=== PATIENT | female | born 1970 | race African-American/Black ===

== ENCOUNTER 2017-04-30 07:10 | Emergency (ER) | payer OTHER ==
[2017-04-30 07:16] VITALS: TEMP 97.9; BMI 27.6
--- NOTE | 2017-04-30 07:34 | PDOC ---
History of Present Illness - General Chief Complaint: Pain Stated Complaint: DIARRHEA Time Seen by Provider: 04/30/17 07:28 History Source: Patient Exam Limitations: No Limitations - History of Present Illness Initial Comments: 04/30/17 07:34 CHIEF COMPLAINT: Diarrhea HISTORY OF PRESENT ILLNESS: This is a 47-year-old female with a history of asthma (no hospitalizations) and cholecystectomy who presents complaining of diarrhea for 3 days. Patient returned from a vacation to [place] on Thursday night. On Thursday in the [employer], she started having watery diarrhea and reports that she has continued having it about every half hour since then. She has diffuse lower abdominal cramping which seems to be worse in the left lower quadrant. She denies nausea/vomiting, fevers/chills, or any other symptoms. She has seen some streaks of blood in her mostly clear/watery diarrhea. Vital signs on arrival are notable for P 92. PCP is Dr. Tomas ([place]). REVIEW OF SYSTEMS: GENERAL/CONSTITUTIONAL: No fever or chills. No weakness. No weight change. HEAD, EYES, EARS, NOSE AND THROAT: No change in vision. No ear pain or discharge. No sore throat. CARDIOVASCULAR: No chest pain or palpitations. RESPIRATORY: No cough, wheezing, or shortness of breath. GASTROINTESTINAL: See HPI. GENITOURINARY: No dysuria, frequency, or change in urination. MUSCULOSKELETAL: No joint or muscle swelling or pain. No neck or back pain. SKIN: No rash or easy bruising. NEUROLOGIC: No headache, vertigo, loss of consciousness, or loss of sensation. PSYCHIATRIC: No depression or anxiety. ENDOCRINE: No increased thirst. No abnormal weight change. HEMATOLOGIC/LYMPHATIC: No anemia, easy bleeding, or history of blood clots. ALLERGIC/IMMUNOLOGIC: No hives or skin allergy. No latex allergy. PHYSICAL EXAM: GENERAL: The patient is awake, alert, and fully oriented, in some distress secondary to pain. HEAD: Normal with no signs of trauma. ENT: Pupils equal, round and reactive to light, extraocular movements intact, sclera anicteric, conjunctiva clear. Neck supple. LUNGS: Clear to auscultation bilaterally. Normal excursion. No respiratory distress or use of accessory muscles. CV: RRR, S1/S2, no MRG. Cap refill < 2 sec. ABDOMEN: Soft, non-distended, tender to gentle palpation in LLQ > RLQ with guarding. Hyperactive bowel sounds. Left CVA tenderness. EXTREMITIES: Normal range of motion, no edema. NEUROLOGICAL: Normal speech, normal gait. CN II-XII grossly intact. PSYCH: Normal mood, normal affect. SKIN: Warm, dry, normal turgor, no rashes or lesions noted. Past History - Past Medical History Allergies/Adverse Reactions: Allergies Allergy/AdvReac Type Severity Reaction Status Date / Time erythromycin base Allergy Verified 04/30/17 09:37 Home Medications: Ambulatory Orders Ciprofloxacin [Cipro -] 500 mg PO Q12H #6 tablet 04/30/17 Metronidazole [Flagyl -] 500 mg PO Q6H #20 tablet 04/30/17 Montelukast Na [Singulair -] 10 mg PO HS 04/30/17 Anemia: No Asthma: Yes - Surgical History Cholecystectomy: Yes - Psycho/Social/Smoking Cessation Hx Suicidal Ideation: No Smoking History: Never smoked Information on smoking cessation initiated: No Hx Alcohol Use: No Drug/Substance Use Hx: No Substance Use Type: None *Physical Exam - Vital Signs Last Vital Signs Temp Pulse Resp BP Pulse Ox 97.9 F 92 H 18 134/97 99 04/30/17 07:13 04/30/17 07:13 04/30/17 07:13 04/30/17 07:13 04/30/17 07:13 ED Treatment Course - LABORATORY CBC & Chemistry Diagram: 04/30/17 08:32 04/30/17 08:32 Medical Decision Making - Medical Decision Making 04/30/17 08:20 A/P: 47 year old female s/p travel to [place] with profuse, watery diarrhea and abdominal cramping. 1. Labs including CBC, Comp, Mg, Lipase 2. CTAP with PO/IV contrast (LLQ > RLQ tenderness with guarding) 3. Morphine 4mg IVP for pain 4. Stool cultures, O & P, C diff, Entamoeba antibody 5. IVF 6. Re-assess 04/30/17 09:48 K 3.2 - supplemented with 40 mEq PO. 04/30/17 12:59 CTAP: No acute pathology. Very small amount of free fluid in the pelvis which could be physiologic. 04/30/17 13:16 Patient re-assessed and is tolerating PO. She did have an additional 7 episodes of diarrhea while in the *DC/Admit/Observation/Transfer Diagnosis at time of Disposition: Diarrhea Qualifiers: Diarrhea type: presumed infectious Qualified Code(s): A09 - Infectious gastroenteritis and colitis, unspecified - Discharge Dispostion Disposition: HOME Condition at time of disposition: Stable Admit: No - Prescriptions Prescriptions: Ciprofloxacin [Cipro -] 500 mg PO Q12H #6 tablet Metronidazole [Flagyl -] 500 mg PO Q6H #20 tablet - Referrals Referrals: Maik Mccarthy [Primary Care Provider] - Call tomorrow - Patient Instructions Printed Discharge Instructions: DI for Diarrhea and Traveler's Diarrhea -- Adult Additional Instructions: -Rest and stay well-hydrated -Take Ciprofloxacin and Flagyl (antibiotics) as prescribed for diarrhea -Please call the results line (number enclosed) in 2-3 days for your culture results -Return here for worsening abdominal pain, inability to drink fluids, or any other concerning symptoms -Please call your primary care doctor today for a followup appointment - Post Discharge Activity Work/School Note: Back to Work
[2017-04-30] MEDS ORDERED: morphine CARPU-JECT 4 MG/1 ML DISP.SYRIN IVPUSH ONE (07:42)
[2017-04-30] MEDS ORDERED: ONDANSETRON 4 MG/2 ML VIAL IVPUSH ONE (07:42)
[2017-04-30] MEDS ORDERED: ONDANSETRON 4 MG/2 ML VIAL ONE (08:12)
[2017-04-30] MEDS ORDERED: morphine CARPU-JECT 4 MG/1 ML DISP.SYRIN ONE (08:12)
--- NOTE | 2017-04-30 08:14 | PDOC ---
*Physical Exam - Vital Signs Last Vital Signs Temp Pulse Resp BP Pulse Ox 97.9 F 92 H 18 134/97 99 04/30/17 07:13 04/30/17 07:13 04/30/17 07:13 04/30/17 07:13 04/30/17 07:13 - Physical Exam Comments: 04/30/17 13:31 GENERAL: Awake, alert, and fully oriented, in no acute distress HEAD: No signs of trauma EYES: PERRLA, EOMI, sclera anicteric, conjunctiva clear ENT: Auricles normal inspection, hearing grossly normal, nares patent, oropharynx clear without exudates. Moist mucosa NECK: Normal ROM, supple, no lymphadenopathy, JVD, or masses LUNGS: Breath sounds equal, clear to auscultation bilaterally. No wheezes, and no crackles HEART: Regular rate and rhythm, normal S1 and S2, no murmurs, rubs or gallops ABDOMEN: Soft, mild lower abdominal tenderness, hyperactive bowel sounds. No guarding, no rebound. EXTREMITIES: Normal range of motion, no edema. No clubbing or cyanosis. No cords, erythema, or tenderness NEUROLOGICAL: Cranial nerves II through XII grossly intact. Normal speech, normal gait SKIN: Warm, Dry, normal turgor, no rashes or lesions noted. ED Treatment Course - LABORATORY CBC & Chemistry Diagram: 04/30/17 08:32 04/30/17 08:32 Medical Decision Making - Medical Decision Making 04/30/17 13:31 47 F with 5 days of profuse watery diarrhea after travelling to [place]. CTAP negative. Likely traveler's diarrhea. Given severity of symptoms, will begin abx. Labs show no evidence of significant dehydration. - Cipro/flagyl - Stool cultures sent - F/u PMD *DC/Admit/Observation/Transfer Diagnosis at time of Disposition: Diarrhea Qualifiers: Diarrhea type: presumed infectious Qualified Code(s): A09 - Infectious gastroenteritis and colitis, unspecified - Discharge Dispostion Disposition: HOME Condition at time of disposition: Stable - Prescriptions Prescriptions: Ciprofloxacin [Cipro -] 500 mg PO Q12H #6 tablet Metronidazole [Flagyl -] 500 mg PO Q6H #20 tablet - Attestations Physician Attestion: 04/30/17 13:46 I, Dr. Lisandro Mckay MD, attest that this document has been prepared under my direction and personally reviewed by me in its entirety. I further attest, that it accurately reflects all work, treatment, procedures and medical decision -making performed by me.
[2017-04-30] MEDS ORDERED: SODIUM CHLORIDE 1,000 ML IV SCH (08:30)
[2017-04-30 08:51] LABS: BASOPHIL 0.3 % (0-2.0); EOSINOPHIL 1.2 % (0-4.5); MCH 31.9 pg (25.7-33.7); MCHC 33.3 g/dl (32.0-36.0); MEAN PLT VOLUME 8.5 fl (7.5-11.1); NEUTROPHILS 67.4 % (42.8-82.8); PLATELET COUNT 292 K/MM3 (134-434); RDW 14.6 % (11.6-15.6); WHITE BLOOD COUNT 5.9 K/mm3 (4.0-10.0)
[2017-04-30 08:53] LABS: URINE APPEARANCE SLCLOUDY; URINE BILIRUBIN NEGATIVE (NEGATIVE); URINE BLOOD 1+ (NEGATIVE); URINE COLOR DKYELLOW; URINE GLUCOSE (UA) NEGATIVE (NEGATIVE); URINE KETONE TRACE (NEGATIVE); URINE LEUK ESTERASE NEGATIVE (NEGATIVE); URINE NITRITE NEGATIVE (NEGATIVE); URINE PROTEIN 2+ (NEGATIVE); URINE UROBILINOGEN NEGATIVE mg/dL (0.2-1.0)
[2017-04-30 09:07] LABS: URINE MUCUS MANY; URINE RBC 6 /hpf (0-3); URINE WBC 1 /hpf (3-5)
[2017-04-30 09:16] LABS: ALBUMIN 3.6 g/dl (3.4-5.0); ANION GAP 10 (8-16); CALCIUM 8.9 mg/dL (8.5-10.1); CO2 25 mmol/L (21-32); CREATININE 0.7 mg/dL (0.55-1.02); GLUCOSE,RANDOM 83 mg/dL (74-106); SGOT/AST 14 U/L (15-37); SGPT/ALT 20 U/L (12-78)
[2017-04-30 09:17] LABS: ALK PHOS 87 U/L (45-117); BILIRUBIN,TOTAL 0.4 mg/dL (0.2-1.0); TOT PROT 7.9 g/dl (6.4-8.2)
[2017-04-30] MEDS ORDERED: POTASSIUM CHLORIDE TABS 20 MEQ TABLET.ER (FP) PO ONE (09:48)
[2017-04-30] MEDS ORDERED: POTASSIUM CHLORIDE ORAL LIQUID 20 MEQ/15 ML ONE (09:54)
[2017-04-30] MEDS ORDERED: LEVOFLOXACIN 750 MG TABLET PO ONE (13:05)
[2017-04-30] MEDS ORDERED: metroNIDAZOLE 500 MG TABLET PO ONE (13:05)
[2017-04-30] MEDS ORDERED: metroNIDAZOLE 250 MG TABLET ONE (13:10)
[2017-04-30] MEDS ORDERED: LEVOFLOXACIN 500 MG TABLET (FP) ONE (13:11)
[2017-04-30] MEDS ORDERED: LEVOFLOXACIN 250 MG TABLET (FP) ONE (13:11)
[2017-04-30 14:44] VITALS: BP 122/82; PULSE 85
== END 2017-04-30 15:05 | disposition home or self-care (01) ==
LOC: JER 07:10
PROC: 3E033NZ Introduction of Analgesics, Hypnotics, Sedatives into Peripheral Vein, Percutaneous Approach (ICD-10-PCS; principal; 2017-04-30)
PROC: 3E033GC Introduction of Other Therapeutic Substance into Peripheral Vein, Percutaneous Approach (ICD-10-PCS; 2017-04-30)
PROC: 3E0337Z Introduction of Electrolytic and Water Balance Substance into Peripheral Vein, Percutaneous Approach (ICD-10-PCS; 2017-04-30)
DX: A09 Infectious gastroenteritis and colitis, unspecified (principal); J45.909 Unspecified asthma, uncomplicated; Z88.1 Allergy status to other antibiotic agents
CPT/HCPCS: 36415; 74177-TC; 80053; 81003; 81015; 83690; 83735; 84703; 85025; 86753; 87045; 87046; 87086; 87177; 87209; 87324; 87449; 99283-25; Q9967